=== PATIENT | female | born 1990 | race Caucasian/White ===

== ENCOUNTER 2018-10-04 20:19 | Inpatient (IN) | payer OTHER ==
[2018-10-04] MEDS ORDERED: NS 1,000 ML IV ONE (20:30)
[2018-10-04] MEDS ORDERED: IOPAMIDOL (ISOVUE-300) 100 ML BTL ONE (20:34)
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
[2018-10-04] MEDS ORDERED: INSULIN REGULAR HUMAN 100 UNIT, COSIGN. REQUIRED 1 EA in NS 100 ML IV ONE (20:41)
[2018-10-04 20:42] LABS: PLATELET COUNT 380 10^3/uL (150-400)
[2018-10-04] MEDS ORDERED: LORazepam 2 MG/ML INJ IVP ONE (20:53)
[2018-10-04 20:54] LABS: INR 0.98 (0.83-1.16); PROTIME(PATIENT) 12.6 SEC (12.0-15.0)
[2018-10-04] MEDS: POTASSIUM Cl (KCl) 100 ML IV SCH ×2 (21:40→23:26)
[2018-10-04] MEDS ORDERED: ONDANSETRON 4 MG/2 ML VIAL IVP PRN (21:59)
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
[2018-10-04] MEDS ORDERED: ACETAMINOPHEN 325 MG TAB PO PRN (22:17)
[2018-10-04] MEDS ORDERED: ONDANSETRON DISINTEGRATING 4 MG TAB PO PRN (22:17)
[2018-10-04] MEDS ORDERED: D5W 1,000 ML IV SCH (22:30)
[2018-10-04] MEDS ORDERED: NS 1,000 ML IV SCH (22:30)
[2018-10-04] MEDS ORDERED: INSULIN REGULAR HUMAN 100 UNIT in NS 100 ML IV SCH (22:30)
[2018-10-04 22:56] VITALS: BP 133/93
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
[2018-10-05] MEDS ORDERED: KETOROLAC 15 MG/1 ML SDV IVP PRN (02:41)
[2018-10-05 06:39] LABS: PLATELET COUNT 307 10^3/uL (150-400)
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
[2018-10-05] MEDS ORDERED: D50W 25 GM/50 ML SYR IVP PRN ×2 (10:51→16:38)
[2018-10-05] MEDS ORDERED: INSULIN PUMP, PATIENT OWN 1 EA MISC SCH (11:00)
[2018-10-05] MEDS ORDERED: NON-FORMULARY NEW DRUG (Insulin Aspart [Novolog] 0 UNIT) SC SCH (12:00)
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
[2018-10-05] MEDS ORDERED: NON-FORMULARY NEW DRUG (Insulin Pump, Patient Own 1 EA) MISC SCH (15:15)
[2018-10-05] MEDS ORDERED: INSULIN LISPRO 100 UNIT/ML SC SCH (18:00)
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
== END 2018-10-05 17:10 | disposition home or self-care (01) | DRG 637 ==
LOC: EDUNIT# → F2N 22:00 → OBSVTOIN 22:03
PROVIDERS: ADMIT Internal Medicine; ATTEND Internal Medicine
DX: E10.65 Type 1 diabetes mellitus with hyperglycemia (principal); E87.0 Hyperosmolality and hypernatremia; G93.41 Metabolic encephalopathy; F12.921 Cannabis use, unspecified with intoxication delirium; F11.921 Opioid use, unspecified with intoxication delirium; S82.51XA Displaced fracture of medial malleolus of right tibia, initial encounter for closed fracture; S50.01XA Contusion of right elbow, initial encounter; V47.0XXA Car driver injured in collision with fixed or stationary object in nontraffic accident, initial encounter; Y92.414 Local residential or business street as the place of occurrence of the external cause; Y99.8 Other external cause status
CPT/HCPCS: 80305; 82435-PO; 82565-PO; 82947-PO; 82947-QW; 84132-PO; 84295-PO; 84520-PO; 85014-ER; 92523-GN; 96365; 97116-GP; 97162-GP; 97166-GO; G0480; J1815; J1885; J2270; J2405; J3480; Q9967